=== PATIENT | female | born 1940 | race Caucasian/White ===

== ENCOUNTER 2016-09-09 14:29 | Observation (INO) ==
--- NOTE | 2016-09-09 15:13 | Emergency Department Note ---
Disposition Clinical Impression: Chest pain, Frail elderly, Cardiac arrhythmia, Hiatal hernia, Hyperglycemia, Elevated blood pressure reading Disposition: Admitted As Inpatient Condition: Good Referrals: Aleksandra Sanchez MD [Primary Care Provider] - General Adult HPI - General Chief complaint: ED Chest Pain Stated complaint: CP Time Seen by Provider: 09/09/16 14:37 - History of Present Illness HPI Narrative: 76-year-old female reports the emergency department complaining of midsternal chest pain. The pain did not necessarily radiate. She reports she was at a restaurant and was preparing to eat and then developed the pain. The pain is now gone. The patient denies any history of coronary disease. She has no personal history of DVT or PE. No primary lung diseases or oxygen requirement. The patient has had no leg swelling or pain or coughing up blood. There is no history of fever. No convulsions or confusion. No leg swelling or pain. There is no history of syncope. No coughing up blood. The patient is not anticoagulated at this time. She denies significant anxiety. The patient denies any history of diabetes hypertension or hypercholesterolemia. She does report a strong family history of coronary disease citing her mother. The patient has not had a heart catheter or stress test for quite some time. She reports she is being evaluated for palpitations by her primary APC. She had a Holter monitor placed results are not yet available. - Related Data Home Medications Medication Instructions Recorded Confirmed Gabapentin 05/05/15 05/05/15 Muscle Relaxant 05/05/15 05/05/15 Percocet 5-325 mg Tablet 05/05/15 05/05/15 Aspirin 04/10/16 Tizanidine HCl 04/10/16 Previous Rx's Medication Instructions Recorded Loperamide [Imodium] 2 mg PO ONCE PRN #6 capsule 04/10/16 Promethazine [Phenergan] 12.5 mg PO Q6HR PRN #10 tablet 04/10/16 Allergies Allergy/AdvReac Type Severity Reaction Status Date / Time Sulfa (Sulfonamide Allergy Hives Verified 05/04/15 07:56 Antibiotics) All systems ED: reviewed and negative except as stated. Past Medical History - Past Medical History Medical history: Reports: non-contributory Psychiatric history: Reports: depression - Social History Smoking Status: Never smoker Smokeless Tobacco Status: No Alcohol use: Reports: none Drug use: Reports: none Physical Exam - General Limitations: no limitations General appearance: alert, in no apparent distress - Head Head exam: atraumatic, normocephalic, normal inspection - Eye Eye exam: Present: normal appearance, PERRL, EOMI - ENT ENT exam: normal exam, normal oropharynx, mucous membranes moist, TM's normal bilaterally, normal external ear exam - Neck Neck exam: Present: normal inspection, full ROM, trachea midline. Absent: tenderness - Chest Chest inspection: Present: symmetric chest wall rise. Absent: tenderness - Respiratory Respiratory exam: Present: normal lung sounds bilaterally. Absent: respiratory distress - Cardiovascular Cardiovascular exam: Present: regular rate, normal rhythm, normal heart sounds - Abdominal Exam Abdominal exam: Present: soft, Non-Tender. Absent: tenderness, distention, guarding, rebound, rigidity, normal bowel sounds, pulsatile mass - Extremities Exam Extremities exam: Present: normal inspection, full ROM, normal capillary refill. Absent: tenderness, pedal edema, joint swelling, calf tenderness - Expanded Lower Extremity Exam Lower leg exam: Absent: Homans' sign Neurovascular/Tendon exam: Absent: pulse deficit, motor deficit, sensory deficit , tendon deficit, extremity cold to touch, pallor - Back Exam Back exam: Present: normal inspection, full ROM. Absent: tenderness, CVA tenderness (R), CVA tenderness (L), vertebral tenderness - Neurological Exam Neurological exam: Present: alert, oriented X3, CN II-XII intact. Absent: motor sensory deficit - Psychiatric Psychiatric exam: Present: normal affect, normal mood - Skin Skin exam: Present: warm, dry, intact, normal color. Absent: rash, cyanosis, diaphoresis, erythema, pallor, mottled Course Vital Signs Temperature 98.6 F 09/09/16 14:31 Pulse Rate 73 09/09/16 14:31 Respiratory Rate 14 09/09/16 14:31 Blood Pressure 147/76 09/09/16 14:31 O2 Sat by Pulse Oximetry 97 09/09/16 14:31 Temperature 98.6 F 09/09/16 14:31 Pulse Rate 68 09/09/16 18:16 Respiratory Rate 16 09/09/16 18:16 Blood Pressure 166/84 09/09/16 18:16 O2 Sat by Pulse Oximetry 97 09/09/16 18:16 Oxygen Delivery Oxygen Delivery Room Air Medical Decision Making - MDM Narrative Medical decision making narrative: The patient is elderly, she has had recurrent chest pain. She has never had a stress test or heart catheter she reports. The patient's Holter monitor was turned and yesterday, it was read as frequent PACs, PVCs, and PAT. The patient has not passed out. She was given aspirin in the ED. The patient denies any history of diabetes hyperlipidemia or hypertension. No personal history of PE DVT or COPD. She has not been coughing. It does not hurt when she breathes in and out necessarily. She describes chest pressure. Based on the patient's age , persistent symptomatology, apparent arrhythmia, and recurrent chest pain, I felt it would be appropriate to admit the patient for further evaluation. I discussed the case with the hospitalist. - Lab Data Lab results reviewed: Yes I reviewed the patient's lab results. Result diagrams: 09/09/16 15:06 09/09/16 15:06 Lab Results 09/09/16 09/09/16 09/09/16 Range/Units 15:06 15:06 15:06 WBC (4.3-11.1) K/mcL RBC (3.82-4.97) M/mcL Hgb (11.5-15.4) g/dL Hct (35.3-44.9) % MCV (83.0-100.0) fL MCH (28.0-33.3) pg MCHC (31.6-35.5) g/dL RDW (11.5-14.5) % Plt Count (140-400) K/mcL MPV (9.4-12.4) fL Immature Gran % (0-4) % Seg Neutrophils % % Lymphocytes % % Monocytes % % Eosinophils % % Basophils % % Neutrophils # (1.6-8.9) K/mcL Lymphocytes # (0.6-4.6) K/mcL Monocytes # (0.0-1.3) K/mcL Eosinophils # (0.0-0.6) K/mcL Basophils # (0.0-0.2) K/mcL PT 10.8 (9.4-12.1) Seconds INR 1.0 APTT 28.0 (26.0-36.0) Seconds Sodium (136-145) mEq/L Potassium (3.5-4.5) mEq/L Chloride (98-109) mEq/L Carbon Dioxide (19-29) mEq/L BUN (7-20) mg/dL Creatinine (0.57-1.11) mg/dL Est GFR ( Amer) (> 60) Est GFR (Non-Af Amer) (> 60) BUN/Creatinine Ratio (6-26) Glucose (70-99) mg/dL Calculated Osmolality (280-300) Lactic Acid 1.9 (0.5-2.2) mmol/L Calcium (8.6-10.8) mg/dL Total Bilirubin 0.4 (0.2-1.2) mg/dL Direct Bilirubin 0.2 (0.0-0.5) mg/dL Indirect Bilirubin 0.2 (0.0-1.2) mg/dL AST 19 (5-34) Units/L ALT 24 (0-55) Units/L Alkaline Phosphatase 77 (38-126) Units/L Troponin I (0-0.03) ng/mL C-Reactive Protein (Less than 5) mg/L Serum Total Protein 6.5 (6.0-8.3) g/dL Albumin 3.3 L (3.5-5.0) g/dL Globulin 3.2 (2.4-3.5) g/dL Albumin/Globulin Ratio 1.0 L (1.1-2.2) Lipase (8-78) Units/L 09/09/16 09/09/16 09/09/16 Range/Units 15:06 15:06 15:06 WBC 6.3 (4.3-11.1) K/mcL RBC 4.28 (3.82-4.97) M/mcL Hgb 11.5 (11.5-15.4) g/dL Hct 35.1 L (35.3-44.9) % MCV 82.0 L (83.0-100.0) fL MCH 26.9 L (28.0-33.3) pg MCHC 32.8 (31.6-35.5) g/dL RDW 15.7 H (11.5-14.5) % Plt Count 222 (140-400) K/mcL MPV 10.2 (9.4-12.4) fL Immature Gran % 0.2 (0-4) % Seg Neutrophils % 67.1 % Lymphocytes % 22.0 % Monocytes % 7.8 % Eosinophils % 2.4 % Basophils % 0.5 % Neutrophils # 4.2 (1.6-8.9) K/mcL Lymphocytes # 1.4 (0.6-4.6) K/mcL Monocytes # 0.5 (0.0-1.3) K/mcL Eosinophils # 0.2 (0.0-0.6) K/mcL Basophils # 0.0 (0.0-0.2) K/mcL PT (9.4-12.1) Seconds INR APTT (26.0-36.0) Seconds Sodium 141 (136-145) mEq/L Potassium 3.6 (3.5-4.5) mEq/L Chloride 108 (98-109) mEq/L Carbon Dioxide 23 (19-29) mEq/L BUN 13 (7-20) mg/dL Creatinine 0.87 (0.57-1.11) mg/dL Est GFR ( Amer) > 60 (> 60) Est GFR (Non-Af Amer) > 60 (> 60) BUN/Creatinine Ratio 15 (6-26) Glucose 139 H (70-99) mg/dL Calculated Osmolality 294 (280-300) Lactic Acid (0.5-2.2) mmol/L Calcium 9.0 (8.6-10.8) mg/dL Total Bilirubin (0.2-1.2) mg/dL Direct Bilirubin (0.0-0.5) mg/dL Indirect Bilirubin (0.0-1.2) mg/dL AST (5-34) Units/L ALT (0-55) Units/L Alkaline Phosphatase (38-126) Units/L Troponin I (0-0.03) ng/mL C-Reactive Protein 2 (Less than 5) mg/L Serum Total Protein (6.0-8.3) g/dL Albumin (3.5-5.0) g/dL Globulin (2.4-3.5) g/dL Albumin/Globulin Ratio (1.1-2.2) Lipase 42 (8-78) Units/L 09/09/16 Range/Units 15:06 WBC (4.3-11.1) K/mcL RBC (3.82-4.97) M/mcL Hgb (11.5-15.4) g/dL Hct (35.3-44.9) % MCV (83.0-100.0) fL MCH (28.0-33.3) pg MCHC (31.6-35.5) g/dL RDW (11.5-14.5) % Plt Count (140-400) K/mcL MPV (9.4-12.4) fL Immature Gran % (0-4) % Seg Neutrophils % % Lymphocytes % % Monocytes % % Eosinophils % % Basophils % % Neutrophils # (1.6-8.9) K/mcL Lymphocytes # (0.6-4.6) K/mcL Monocytes # (0.0-1.3) K/mcL Eosinophils # (0.0-0.6) K/mcL Basophils # (0.0-0.2) K/mcL PT (9.4-12.1) Seconds INR APTT (26.0-36.0) Seconds Sodium (136-145) mEq/L Potassium (3.5-4.5) mEq/L Chloride (98-109) mEq/L Carbon Dioxide (19-29) mEq/L BUN (7-20) mg/dL Creatinine (0.57-1.11) mg/dL Est GFR ( Amer) (> 60) Est GFR (Non-Af Amer) (> 60) BUN/Creatinine Ratio (6-26) Glucose (70-99) mg/dL Calculated Osmolality (280-300) Lactic Acid (0.5-2.2) mmol/L Calcium (8.6-10.8) mg/dL Total Bilirubin (0.2-1.2) mg/dL Direct Bilirubin (0.0-0.5) mg/dL Indirect Bilirubin (0.0-1.2) mg/dL AST (5-34) Units/L ALT (0-55) Units/L Alkaline Phosphatase (38-126) Units/L Troponin I 0.02 (0-0.03) ng/mL C-Reactive Protein (Less than 5) mg/L Serum Total Protein (6.0-8.3) g/dL Albumin (3.5-5.0) g/dL Globulin (2.4-3.5) g/dL Albumin/Globulin Ratio (1.1-2.2) Lipase (8-78) Units/L - Radiology Data Radiology results reviewed: Yes I reviewed the patient's radiology results.
[2016-09-09 15:15] LABS: Basophils % 0.5 %; Eosinophils # 0.2 K/mcL (0.0-0.6); Eosinophils % 2.4 %; Hematocrit 35.1 % (35.3-44.9); Hemoglobin 11.5 g/dL (11.5-15.4); Immature Granulocytes % 0.2 % (0-4); Lymphocytes # 1.4 K/mcL (0.6-4.6); Mean Corpuscular HGB Conc 32.8 g/dL (31.6-35.5); Mean Corpuscular Hemoglobin 26.9 pg (28.0-33.3); Mean Platelet Volume 10.2 fL (9.4-12.4); Monocytes # 0.5 K/mcL (0.0-1.3); Monocytes % 7.8 %; Neutrophils # 4.2 K/mcL (1.6-8.9); Platelet Count 222 K/mcL (140-400); Red Blood Count 4.28 M/mcL (3.82-4.97); Red Cell Distribution Width 15.7 % (11.5-14.5); Segmented Neutrophils % 67.1 %
[2016-09-09 15:20] LABS: Prothrombin Time 10.8 Seconds (9.4-12.1)
[2016-09-09] MEDS ORDERED: Aspirin 325 MG TABLET PO ONE (15:29)
[2016-09-09 15:35] LABS: BUN/Creatinine Ratio 15 (6-26); Blood Urea Nitrogen 13 mg/dL (7-20); Carbon Dioxide 23 mEq/L (19-29); Chloride 108 mEq/L (98-109); Glucose 139 mg/dL (70-99); Osmolality,Calculated 294 (280-300); Potassium 3.6 mEq/L (3.5-4.5); Sodium 141 mEq/L (136-145); eGFR For African Americans > 60 (> 60); eGFR For Non-African Americans > 60 (> 60)
[2016-09-09 15:36] LABS: Albumin 3.3 g/dL (3.5-5.0); Bilirubin,Direct 0.2 mg/dL (0.0-0.5); Bilirubin,Indirect 0.2 mg/dL (0.0-1.2); Bilirubin,Total 0.4 mg/dL (0.2-1.2); C-Reactive Protein 2 mg/L (Less than 5); Globulin 3.2 g/dL (2.4-3.5); Lipase 42 Units/L (8-78); Total Protein 6.5 g/dL (6.0-8.3)
[2016-09-09] MEDS ORDERED: Ondansetron 4 MG/2 ML VIAL IVP PRN (22:10)
[2016-09-09] MEDS ORDERED: Acetaminophen 325 MG TABLET PO PRN (22:10)
[2016-09-09] MEDS ORDERED: Naloxone 0.4 MG/ML INJ IVP PRN (22:10)
[2016-09-09] MEDS ORDERED: *HR* OxyCODONE/APAP 7.5/325 TABLET PO PRN (22:13)
[2016-09-09] MEDS ORDERED: Gabapentin 300 MG CAPSULE PO SCH (22:15)
[2016-09-09] MEDS ORDERED: Nitroglycerin 0.4 MG TAB.SUBL SL PRN (22:45)
--- NOTE | 2016-09-09 22:51 | Internal Med History&Physical ---
<Paola Alegria - Last Filed: 09/09/16 23:58> Date of Encounter: 09/09/16 Time of Encounter: 22:50 Assessment and Plan (1) Chest pain Current visit: Yes Status: Acute 1 patient is experiencing midsternal chest pressure nonradiating which resolved on some. She has also been experiencing off and on palpitations had a recent Holter monitor which did reveal some PACs and PVCs. She has cardiac history and her maternal side. First set of cardiac troponins are negative we will cycle cardiac troponins 2 continuous cardiac monitoring 3 we will obtain cardiac echo 4 make patient nothing by mouth after midnight and obtain pharmacological cardiac stress test in a.m. 5 obtain lipid profile 6 aspirin and statin 7 cardiac diet 8 nitroglycerin/ oxygen as needed Qualifiers: Chest pain type: unspecified Qualified Code(s): R07.9 - Chest pain, unspecified (2) Cardiac arrhythmia Current visit: Yes Status: Acute 1 patient has been experiencing palpitations with plate on the Holter monitor results indicate PACs and PVCs. Present EKG normal sinus rhythm we will continue to monitor EKG 2 continuous cardiac monitoring 3 electrolytes stable at this time continue to monitor electrolytes 4 Patient follow-up as outpatient with PCP Qualifiers: Arrhythmia type: other cardiac arrhythmia Qualified Code(s): I49.8 - Other specified cardiac arrhythmias (3) DVT prophylaxis Current visit: Yes Status: Acute [facility] Internal Medicine - H&P: HPI Chief complaint: cp Admitted From: Emergency Dept Plans for Post Hospital Care: Home History of present illness: Ms. Lowery is a 76 year old female neuropathy. The patient she was at a restaurant preparing to eat when she developed midsternal chest pain which she described as squeezing it was nonradiating a.m. to 10 she did have shortness of breath denies any diaphoresis or nausea. Pain lasted approximately 5-7 minutes and resolved on own. She denied any palpitations during the episode. The patient has had a history of palpitations and was placed on a Holter monitor Friday and returned monitor on Friday. The Holter monitor revealed frequent PACs PVCs and PACs. Patient denies any fevers chills nausea vomiting diarrhea syncope or shortness of breath. She was brought to the ER for evaluation. According to ER reports cardiac troponins were negative EKG with no ST-T wave abnormalities noted chest x-ray with no acute process rest of lab work was unremarkable. She has not had a cardiac workup in the past and denies any history of diabetes hypertension or hypercholesterolemia. She does report a strong family history of coronary artery disease with her mother's side family. She has been admitted for further workup and evaluation. Presently patient denies any chest pain or service of breath palpitations. He is hemodynamically stable at this time I reviewed this case with Dr. Nava who agrees with plan Past Med Surg Social Fam HX - Past Medical History Medical history: non-contributory, GERD Psychiatric history: depression - Social History Smoking Status: Never smoker Smokeless Tobacco Status: No Alcohol use: none Drug use: none - Family History Mother Living Status: Hx Family Cardiac Disorders: Yes (CHF) Hx Family Cancer: Yes (BREAST) Hx Family Endocrine Disorder: Yes (DM) Internal Medicine - H&P: Meds Gabapentin [Neurontin] 300 mg PO QAM 05/05/15 [History] OxyCODONE/APAP 7.5/325 [Percocet 7.5/325 MG] 1 each PO TID PRN 05/05/15 [History ] Tizanidine HCl 2 mg PO Q8H PRN 04/10/16 [History] Cholecalciferol (D-3) [Vitamin D] 1,000 unit PO DAILY 09/09/16 [History] Gabapentin [Neurontin] 600 mg PO HS 09/09/16 [History] Magnesium Oxide [Magnesium] 500 mg PO HS PRN 09/09/16 [History] Meloxicam [Mobic] 15 mg PO Q8H 09/09/16 [History] Multivit-Min/Iron/Folic/Lutein [Centrum Silver Women Tablet] 1 each PO DAILY [History] Sharon-3/Dha/Epa/Fish Oil [Sharon 3 500 Softgel] 1 each PO DAILY 09/09/16 [History ] Allergies Sulfa (Sulfonamide Antibiotics) Allergy (Verified 05/04/15 07:56) Hives All Systems PM: A 10-system review of systems was performed and is negative for pertinent findings except as documented above in the HPI. - Constitutional Constitutional: fatigue - EENT Eyes: no change in vision, no discharge, no pain, no photophobia - Cardiovascular Cardiovascular ROS IM: chest pain, palpitations - Respiratory Respiratory: no cough, no dyspnea, no wheezing, no excessive phlegm production - Gastrointestinal Gastrointestinal: no abdominal pain, no diarrhea, no hematemesis, no hematochezia, no melena, no nausea, no vomiting - Genitourinary Genitourinary: no change in urinary stream, no dysuria, no flank pain, no hematuria - Musculoskeletal Musculoskeletal ROS IM: no numbness, no tingling - Integumentary Integumentary IM: no rash, no unusual bruising - Neurological Neurological ROS: no confusion, no convulsions, no focal weakness, no numbness, no tingling, no tremor(s) - Hematologic/Lymphatic Hematologic/Lymphatic: no easy bruising - Constitutional Vitals: Temp Pulse Resp BP Pulse Ox 97.6 F 78 16 125/78 96 09/09/16 21:17 09/09/16 21:17 09/09/16 21:17 09/09/16 21:17 09/09/16 21:17 General appearance: Present: A&O X 3, answers questions appropriately - Head Head exam: Present: atraumatic, normocephalic - Eye Eye exam: Present: PERRL, conjuntiva pink, sclera anicteric Pupils: Present: PERRL - Neck Neck exam general surgery: Present: supple, trachea midline. Absent: lymphadenopathy - Respiratory Respiratory exam: Present: CTAB. Absent: accessory muscle use, rales, rhonchi, wheezes - Cardiovascular Cardiovascular exam: Present: RRR, +S1, +S2. Absent: diastolic murmur, gallop, rubs, systolic murmur - GI/Abdominal GI/Abdominal exam: Present: normal bowel sounds, soft, no peritoneal signs. Absent: distended, tenderness - Extremities Exam Extremities exam: Present: warm, radial pulses palpable and symetrical. Absent : calf tenderness, cyanotic, pedal edema - Neurological Exam Neurological exam: Present: CN II-XII intact, oriented X3, no focal deficits. Absent: pronater drift, facial droop, speech deficit - Skin Skin exam: Present: dry, intact Internal Med - H&P Results - Labs CBC & Chem 7: 09/09/16 15:06 09/09/16 15:06 - EKG Data EKG shows normal: sinus rhythm Rate: normal - Diagnostic Studies Chest x-ray Additional comments: Pertinent radiology read no acute process <Mudduluru,Madhusudha R - Last Filed: 09/10/16 04:33> Date of Encounter: 09/09/16 Internal Medicine - H&P: HPI History of present illness: Ms. Lowery is a 76 year old female All Systems PM: A 10-system review of systems was performed and is negative for pertinent findings except as documented above in the HPI. - Constitutional Vitals: Temp Pulse Resp BP Pulse Ox 97.9 F 68 16 146/87 96 09/10/16 03:20 09/10/16 03:20 09/10/16 03:20 09/10/16 03:20 09/09/16 23:30 Internal Med - H&P Results - Labs CBC & Chem 7: 09/09/16 15:06 09/09/16 15:06 Labs: Cardiac Enzymes 09/09/16 Range/Units 23:29 Troponin I 0.01 (0-0.03) ng/mL - Attending Attestation I examined this patient and my medical decision-making was reviewed with the [employer]/ Advanced Practice Nurse. I agree with the documented findings, disposition and treatment plan as described except to the extent set forth below. 76-year-old female who had Holter monitoring recently, for palpitations which apparently showed the PVCs/PACs. She presents to the emergency department with history of chest pain/discomfort, which was non-radiating. o/e; cardiac: RRR; lungs: CTA. EKG showed sinus rhythm. T-wave inversions in the EV L, V5, V6. A/P: Chest pain: Monitor troponins, cardiac stress test, and echocardiogram.
[2016-09-10] MEDS: tiZANidine 4 MG TABLET PO PRN ×2 (00:13→10:24)
[2016-09-10 04:52] LABS: Basophils % 0.7 %; Eosinophils # 0.2 K/mcL (0.0-0.6); Eosinophils % 3.4 %; Hematocrit 34.4 % (35.3-44.9); Immature Granulocytes % 0.2 % (0-4); Lymphocytes # 1.7 K/mcL (0.6-4.6); Lymphocytes % 38.1 %; Mean Corpuscular Hemoglobin 26.2 pg (28.0-33.3); Mean Corpuscular Volume 81.9 fL (83.0-100.0); Mean Platelet Volume 10.2 fL (9.4-12.4); Monocytes # 0.4 K/mcL (0.0-1.3); Monocytes % 9.3 %; Neutrophils # 2.1 K/mcL (1.6-8.9); Platelet Count 214 K/mcL (140-400); Red Cell Distribution Width 15.8 % (11.5-14.5); Segmented Neutrophils % 48.3 %
[2016-09-10 05:15] LABS: BUN/Creatinine Ratio 15 (6-26); Blood Urea Nitrogen 12 mg/dL (7-20); Calcium 8.6 mg/dL (8.6-10.8); Carbon Dioxide 25 mEq/L (19-29); Chloride 108 mEq/L (98-109); Cholesterol 171 mg/dL (< 200); Glucose 87 mg/dL (70-99); HDL Cholesterol 57 mg/dL (40-59); LDL Cholesterol,Calculated 96 mg/dL (0-99); Osmolality,Calculated 289 (280-300); Potassium 3.5 mEq/L (3.5-4.5); Sodium 140 mEq/L (136-145); Triglycerides 92 mg/dL (< 150); eGFR For African Americans > 60 (> 60); eGFR For Non-African Americans > 60 (> 60)
[2016-09-10] MEDS ORDERED: Regadenoson 0.4 MG/5 ML SYRINGE IVP ONE (06:15)
[2016-09-10] MEDS ORDERED: *HR* Enoxaparin 40 MG/0.4 ML SYRINGE SQ SCH (07:00)
[2016-09-10] MEDS ORDERED: Aspirin 81 MG TAB.CHEW PO SCH (09:00)
[2016-09-10] MEDS ORDERED: Cholecalciferol (D-3) 1,000 UNIT TABLET PO SCH (09:00)
[2016-09-10] MEDS ORDERED: OMEGA PO SCH (09:00)
[2016-09-10] MEDS ORDERED: Gabapentin 300 MG CAPSULE PO SCH (09:00)
[2016-09-10] MEDS ORDERED: Multivit/Ca/Min/Fe/FA 1 TAB TABLET PO SCH (09:00)
--- NOTE | 2016-09-10 10:41 | Nuclear Medicine Stress Report ---
Regadenoson Nuclear Stress Name: Meghann Lowery Date of Study: 09/10/2016 Date: 1940 Ht: Medical Record#: [id number] Age: 76 Wt: Gender: Female Order #: [id number] Location: [facility] Room: [facility] Supervising Provider: Efren Sullivan CNP Reading Physician: Bridget Cosme DO Ordering Physician: Tiffanie Clark CNP Primary Care Physician: Aleksandra Sanchez MD Stress Technologist: Arsen Harden CRT Melter Supervisor: Catarino Del Angel Indications: Chest Pain Impression: Perfusion imaging was negative for ischemia or infarct. Pharmacologic ECG was non diagnostic for ischemia due to baseline ST abnormalities. Occasional PACs during testing. Patient described chest heaviness/tightness. Decrease in systolic blood pressure by 40 mmHg with pharmacologic infusion can be normal for Regadenoson infusion. Recommend clinical correlation. Gated EF = 69%. Stress Test Summary: Stress Test Type: Pharmacologic Regadenoson 0.4mg/5ml given IV Baseline Information: Initial Heart Rate: 68 Blood Pressure: 142/80 Stress Information: Test Terminated Due to (primary): As per protocol Maximum Blood Pressure: 130/78 Maximum Heart Rate: 98 Percent Maximum Heart Rate Achieved: 67 Double Product: [id number] METS Reached: 1 Symptoms: Chest tightness, Chest heaviness Nuclear Summary: SPECT myocardial perfusion imaging using Tc99m Sestamibi given intravenously was performed at rest and following cardiac stress testing. The resting images were obtained following initial dose of 11 mCi. Following stress an additional dose of 33.6 mCi was given at peak exercise or 30 seconds post regadenoson infusion. Medication Given: Time Medication Dose Units Route Findings: Stress Note * Resting ECG demonstrated normal sinus rhythm with nonspecific ST abnormalities. * Pharmacologic stress ECG is non diagnostic for ischemia due to baseline non-specific ST and T changes. * Occasional PACs noted during stress. * Patient described chest heaviness/tightness during the exam. Hemodynamic responses * The patient demonstrated a hypotensive blood pressure response. Baseline BP 142/80 decreased to 98/60 with pharmacologic infusion. Study Quality * Study quality is good. Gated EF % * Gated EF = 69%. Left Ventricle * The left ventricle is not dilated. TID * No evidence of transient ischemic dilatation. Lung Uptake * There is no evidence of increase lung uptake. NORMALS * Normal wall motion. * Normal segmental perfusion in stress. * Normal Segmental Perfusion in rest. Updated by Bridget Cosme on 09/10/2016 10:30:14 AM electronically signed on 09/10/2016 10:36:10 AM with status of Final
[2016-09-10 11:51] VITALS: BP 105/67
--- NOTE | 2016-09-10 15:19 | Discharge Summary ---
Date of Encounter: 09/10/16 Time of Encounter: 14:45 - Discharge Diagnosis (1) Chest pain Priority: Primary Status: Resolved Comments: Patient denied chest pain on day of discharge. She denied shortness of breath. Chest x-ray negative. Troponins negative. Stress test negative for ischemia or infarct revealed ejection fraction of 69%. Of note, echocardiogram pending at time of discharge however patient can follow up outpatient for the results. ACS ruled out. Qualifiers: Chest pain type: unspecified Qualified Code(s): R07.9 - Chest pain, unspecified (2) Cardiac arrhythmia Priority: Primary Status: Acute Comments: Acute on chronic. Patient denied any palpitations while admitted. Recent Holter monitor outpatient indicating PACs and PVCs. Follow-up outpatient. (3) DVT prophylaxis Priority: Primary Status: Acute Comments: Subcutaneous Lovenox while admitted (4) Elevated blood pressure reading Priority: Primary Status: Resolved Comments: Normotensive the time of discharge without any antihypertensive medications, recommend daily blood pressure checks at home and following up outpatient. Patient was not willing to initiate a new medication without her primary care provider speaking to her first. (5) Hiatal hernia Priority: Primary Status: Acute (6) Hyperglycemia Priority: Primary Status: Resolved Comments: Resolved. Likely stress related, no signs of diabetes, follow-up outpatient (7) Code status needs review Priority: Primary Status: Acute Comments: At time of discharge, patient stated she would like to have a "DNR paper." CODE STATUS discussed with her at length and patient stating she wants to go does not want to be intubated, no compressions. Just wants to be kept comfortable. CODE STATUS updated DNR CCA DNI. was present for this conversation. - Discharge Medications Home Medications: Gabapentin [Neurontin] 300 mg PO QAM 05/05/15 [History] OxyCODONE/APAP 7.5/325 [Percocet 7.5/325 MG] 1 each PO TID PRN 05/05/15 [History ] Tizanidine HCl 2 mg PO Q8H PRN 04/10/16 [History] Cholecalciferol (D-3) [Vitamin D] 1,000 unit PO DAILY 09/09/16 [History] Gabapentin [Neurontin] 600 mg PO HS 09/09/16 [History] Magnesium Oxide [Magnesium] 500 mg PO HS PRN 09/09/16 [History] Meloxicam [Mobic] 15 mg PO Q8H 09/09/16 [History] Multivit-Min/Iron/Folic/Lutein [Centrum Silver Women Tablet] 1 each PO DAILY [History] Hurley-3/Dha/Epa/Fish Oil [Hurley 3 500 Softgel] 1 each PO DAILY 09/09/16 [History ] Allergies/Adverse Reactions: Allergies Sulfa (Sulfonamide Antibiotics) Allergy (Verified 05/04/15 07:56) Hives Procedures/tests Complete & Pending: Procedures Performed prior 72 hours Category Date Time Status NM marcella perf SPECT multi [NM] Routine Exams 09/09/16 22:13 Taken ECG 12 lead ECG [ECG] AM 0600 Y 09/10/16 06:00 Completed ECG 12 lead ECG [ECG] Routine Y 09/10/16 05:44 Completed EV echocardiogram Routine Y 09/09/16 22:13 Ordered SP pharm nuclear stress Routine Y 09/10/16 07:35 Completed Date of admission: 09/09/16 19:52 Primary care physician: Aleksandra Sanchez, Discharging clinician: Tiffanie Clark Anticipated date of discharge: 09/10/16 (F/U outpatient for Echo results) - Patient Status Disposition: Home, Self-Care Condition: Good Functional capacity at discharge: independent ambulation Overall status at discharge: patient is back to baseline - Discharge Instructions Follow Up With: Aleksandra Sanchez MD [Primary Care Provider] - Forms: ED Satisfaction Letter Additional Instructions: Follow-up with primary care provider within one to 2 weeks - Diet and Activity Activity: increase activity as tolerated Diet: low fat, low cholesterol, low salt diet Hospital course: Ms. Lowery is a 76 year old female with no real past medical history other than GERD. Patient stating she was at a restaurant preparing to eat when she developed mid sternally located chest pain described as squeezing and without radiation. Associated symptoms included shortness of breath. Patient denied diaphoresis or nausea. Pain lasted approximately 5-7 minutes and was self- limiting. Patient denied any palpitations during this episode. Patient has a history of palpitations and wore a Holter monitor this past week which revealed frequent PACs and PVCs. Patient denied fever, chills, nausea vomiting or diarrhea, syncope or shortness of breath. Workup in the emergency department unremarkable. Troponins negative. No ischemic abnormalities to the EKG. Chest x-ray negative. Patient was admitted to the hospitalist service for further evaluation and management. Patient had a nuclear stress test that was negative for ischemia or infarct and revealed an ejection fraction of 69%. She did have a decrease in her systolic blood pressure during the stress test however per cardiology this is not unusual. She also had an echocardiogram on day of discharge however patient stating she needed to leave the hospital and wanted to follow-up with her primary care provider regarding echocardiogram results. Acute coronary syndrome ruled out. Patient was asymptomatic and denied chest pain or shortness of breath on day of discharge. She did have elevated blood pressure readings that resolved without the use of antihypertensive medications. She also had a mildly elevated glucose reading that also resolved without intervention. Recommend daily blood pressure checks at home and following up outpatient. She is discharged home in stable condition with close outpatient follow-up recommended. ITS Impressions Chest X-Ray 09/09/16 14:38 IMPRESSION: No acute cardiopulmonary disease. Moderate size hiatal hernia. Osteopenia. D/ / 09/09/2016 16:12:46 Roman Huggins MD / smiley Interpreting Provider: Roman Huggins MD Nuclear stress test impression: Perfusion imaging was negative for ischemia or infarct. Pharmacologic ECG was nondiagnostic for ischemia due to baseline ST abnormalities. Occasional PACs during testing. Patient described chest heaviness/tightness. Decrease in systolic blood pressure by 40 mmHg with pharmacologic infusion can be normal for Regadenoson infusion. Recommend medical correlation. Gated ejection fraction 69%. - Time Spent with Patient Total time spent providing and/or coordinating discharge services: - Constitutional Vitals: Temp Pulse Resp BP Pulse Ox 98.0 F 58 18 105/67 96 09/10/16 11:49 09/10/16 11:49 09/10/16 11:49 09/10/16 11:49 09/10/16 11:49 General appearance: Present: A&O X 3, pleasant, no acute distress, answers questions appropriately - Head Head exam: Present: atraumatic, normocephalic - Eye Eye exam: Present: PERRL, conjuntiva pink, sclera anicteric Pupils: Present: PERRL - Neck Neck exam general surgery: Present: supple, trachea midline. Absent: lymphadenopathy - Respiratory Respiratory exam: Present: CTAB. Absent: accessory muscle use, rales, respiratory distress, rhonchi, wheezes - Cardiovascular Cardiovascular exam: Present: RRR, +S1, +S2. Absent: diastolic murmur, gallop, rubs, systolic murmur - GI/Abdominal GI/Abdominal exam: Present: normal bowel sounds, soft, no peritoneal signs. Absent: distended, tenderness - Extremities Exam Extremities exam: Present: warm, radial pulses palpable and symetrical. Absent : calf tenderness, cyanotic, pedal edema - Neurological Exam Neurological exam: Present: alert, CN II-XII intact, normal gait, oriented X3, no focal deficits, strengths equal and symetr throughout. Absent: pronater drift, facial droop, speech deficit - Skin Skin exam: Present: dry, intact, normal color, warm
--- NOTE | 2016-09-10 16:18 | Electrocardiograph Report ---
[place] [id number] Test Date: 2016-09-09 Pat Name: Meghann Lowery Department: 103 Room: 3B Gender: F Solid Waste Technician: : 1940 Requested By: Dickson Clarke Order Number: [id number] Reading MD: Ghanshyam Martinez Measurements Intervals [place] Rate: 69 P: 49 CA: 141 QRS: -41 QRSD: 93 T: 83 QT: 393 QTc: 412 Interpretive Statements SINUS RHYTHM MARKED LEFT AXIS DEVIATION NONSPECIFIC T-WAVE ABNORMALITY Electronically Signed On 09-10-2016 16:16:24 EST by Ghanshyam Martinez
--- NOTE | 2016-09-10 16:40 | Electrocardiograph Report ---
[address] [address] Test Date: 2016-09-10 Pat Name: Meghann Lowery Department: 113 Room: 3B Gender: F Psych Sales Specialist: : 1940 Requested By: Tiffanie Clark Order Number: [id number] Reading MD: Ghanshyam Martinez Measurements Intervals [place] Rate: 58 P: 67 MD: 159 QRS: -14 QRSD: 90 T: 94 QT: 430 QTc: 428 Interpretive Statements SINUS BRADYCARDIA LATERAL T WAVE CHANGES Electronically Signed On 09-10-2016 16:38:46 EST by Ghanshyam Martinez
--- NOTE | 2016-09-10 16:40 | Electrocardiograph Report ---
[place] [address] Test Date: 2016-09-10 Pat Name: Meghann Lowery Department: 113 Room: 3B Gender: F Business Loan Processor: : 1940 Requested By: Paola Alegria Order Number: [id number] Reading MD: Ghanshyam Martinez Measurements Intervals [place] Rate: 57 P: 61 ME: 150 QRS: -22 QRSD: 94 T: 95 QT: 442 QTc: 435 Interpretive Statements SINUS BRADYCARDIA BORDERLINE LEFT AXIS DEVIATION NONSPECIFIC T-WAVE ABNORMALITY Electronically Signed On 09-10-2016 16:38:56 EST by Ghanshyam Martinez
--- NOTE | 2016-09-11 09:29 | ECHO - Doppler Report ---
Echocardiogram Name: Meghann Lowery Date of Study: 09/10/2016 Date: 1940 Ht: 64.0 in Medical Record#: [id number] Age: 76 Wt: 170.0 lb Gender: Female BSA: 1.83 Order #: [id number] Location: [facility] Room #: 3B Reading Physician: Dean Peacock MD, [facility] Special Tester: Felicia Deshpande RDCS Ordering Physician: Paola Alegria CNP Primary Physician: None Indications: Chest pain Impressions: Normal left ventricular systolic function, LVEF 60-65%. Indeterminate diastolic function. Normal right ventricular size and function. Moderately dilated left atrium. No significant valvular dysfunction. No evidence of pulmonary hypertension. Left Ventricular Wall Motion: Rest Echo Findings All wall segments showed normal motion. Findings: Study Quality * Suboptimal echo windows ECG Findings * Sinus bradycardia. Left Ventricle * Normal left ventricular systolic function, LVEF 60-65%. * Normal LV chamber size and wall thickness. * Indeterminate diastolic function. Right Ventricle * Normal right ventricular size and function. Left Atrium * Moderately dilated left atrium. Right Atrium * Normal right atrial size. Aorta * Normally sized aortic root. Pericardium * There is no pericardial effusion present. IVC * The IVC was not visualized. Aortic Valve * Trileaflet aortic valve. * Mildly sclerotic aortic valve leaflets. * No aortic stenosis. * Trace aortic regurgitation. Mitral Valve * Normal mitral valve structure. * No mitral stenosis. * Trace mitral regurgitation. Tricuspid Valve * Normal tricuspid valve structure. * No tricuspid stenosis. * Trace tricuspid regurgitation. * No evidence of pulmonary hypertension. Pulmonic Valve * Pulmonic valve not well visualized. * No pulmonic stenosis. * No pulmonic regurgitation. History Family History of CAD Measurements: BP: 105/ 67 2D Normal Values RVIDd: 2.43 cm IVSd: .71 cm 0.6 - 1.0 cm LVIDd: 4.70 cm 3.7 - 5.6 cm LVPWd: .89 cm 0.6 - 1.1 cm LVIDs: 3.33 cm 1.5 - 3.6 cm AO: 2.60 cm < 4.0 cm LA volume: 72 Mitral Valve Peak E:.75 m/sec Peak A:.76 m/sec E/A Ratio:1 Tricuspid Valve TV Regurg Peak Grad: 11.00mmHg TV Regurg Peak Michael: 1.68m/sec Updated by Dean Peacock MD, [facility] on 09/11/2016 9:21:55 AM electronically signed on 09/11/2016 9:22:42 AM with status of Final Wall Motion Brenner: 1=Normal, 2=Hypokinesis, 3=Akinesis, 4=Dyskinesis, 5=Aneurysmal, 6=Hyperkinetic, X=Not Visualized (Blank)=Missing
== END 2016-09-10 16:23 | disposition home or self-care (01) ==
LOC: EMEROO 14:29 → 3BNU 14:29
PROVIDERS: ADMIT Internal Medicine; ATTEND Nurse Practitioner Family